=== PATIENT | male | born 1940 | race Caucasian/White ===

== ENCOUNTER 2017-05-07 11:11 | Emergency (ER) | payer MEDICARE ==
[~2017-05-07] VITALS: Ht 170.2 cm; Wt 70.6 kg
[~2017-05-07 11:11] MED LIST: LORTAB 5 OR; ULTRAM50 M1 PO; [UNRECOGNIZED DRUG - REMARK]
[2017-05-07 11:59] LABS: HEMATOCRIT 45.7 % (39.0-50.0); IMMATURE GRANULOCYTES 0.3 % (0.0-1.0); MEAN CELL VOLUME 91.4 fL CALC (80.0-100.0); NEUT# 6.31 thou/uL (1.82-7.42); RED CELL DISTRI WIDTH 12.7 % (11.5-15.5)
[2017-05-07 12:07] LABS: ANION GAP 15 (6-22 (CALC)); BUN 12 mg/dL (8-23); BUN/CREATININE RATIO 15 (12-20 (CALC)); CALCIUM 9.9 mg/dL (8.4-10.2); CARBON DIOXIDE 27 mmol/l (22-30); CHLORIDE 101 mmol/l (95-108); CREATININE 0.8 mg/dL (0.7-1.3); GFR > 60 ML/MIN (>=60 (CALC)); GFR FOR AFR.AMER. > 60 ML/MIN (>=60 (CALC)); GLUCOSE 131 mg/dL (82-115); POTASSIUM 3.9 mmol/l (3.5-5.1); SODIUM 138 mmol/l (137-146)
[2017-05-07 13:40] VITALS: BP 137/63
== END 2017-05-07 13:45 | disposition home or self-care (01) ==
LOC: ED 11:11
PROVIDERS: Family Medicine
DX: H53.8 Other visual disturbances (principal); I25.10 Atherosclerotic heart disease of native coronary artery without angina pectoris; I10 Essential (primary) hypertension; E78.5 Hyperlipidemia, unspecified; E11.9 Type 2 diabetes mellitus without complications; H54.62 Unqualified visual loss, left eye, normal vision right eye; F17.290 Nicotine dependence, other tobacco product, uncomplicated; Z95.1 Presence of aortocoronary bypass graft
CPT/HCPCS: Q9967